=== PATIENT | female | born 1985 | race Caucasian/White ===

== ENCOUNTER 2018-01-03 22:24 | Emergency (ER) | payer OTHER ==
[~2018-01-03] VITALS: Ht 154.9 cm; Wt 117.9 kg
[2018-01-03 22:32] VITALS: BP 123/81
--- NOTE | 2018-01-03 22:35 | NUR ---
TO LOBBY A/W BED, XRAY, AMB, VSS ERMD NOTED
--- NOTE | 2018-01-04 00:55 | NUR ---
PATIENT AMBULATED TO ER BED 10.
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
--- NOTE | 2018-01-04 01:25 | NUR ---
PATIENT RESTING AT THIS TIME. NO SIGNS OF DISTRESS.
[2018-01-04 02:05] VITALS: BP 108/80
== END 2018-01-04 02:05 | disposition home or self-care (01) ==
LOC: MED 22:24
DX: S60.212A Contusion of left wrist, initial encounter (principal); W50.0XXA Accidental hit or strike by another person, initial encounter; Y93.89 Activity, other specified; Y92.89 Other specified places as the place of occurrence of the external cause; Y99.8 Other external cause status
CPT/HCPCS: 73110; 99284